=== PATIENT | male | born 1945 | race Caucasian/White ===

== ENCOUNTER 2022-11-27 13:37 | Inpatient (IN) | payer MEDICARE ==
[2022-11-27] VITALS (31 sets, daily range): BP systolic 86–154; BP diastolic 35–83
[~2022-11-27] VITALS: Ht 172.7 cm; Wt 88.5 kg
[~2022-11-27 13:37] MED LIST: ALBUTEROL; AMLO5; CAND4 PO; CEPH500 PO; CLOP75 PO; CRESTOR; DICMIS75EC PO; DIPASPER; HYDPAM50 PO; HYDROCHLOROTHIAZIDE; LISI20; METO25ER PO; METOPROLOL; METOPROLOL PO; OXYACE5T PO; PIRO20; PLAVIX PO; TRIAM/HCTZ; UROXATROL; [UNRECOGNIZED DRUG - REMARK]; [UNRECOGNIZED DRUG - REMARK]; [UNRECOGNIZED DRUG - REMARK]; [UNRECOGNIZED DRUG - REMARK]
[2022-11-27 13:54] LABS: Hematocrit 41.9 % (37.0-53.0); Hemoglobin 12.7 g/dL (13.5-17.5); Mean Corpuscular HGB 31.9 pg (26.0-34.0); Mean Corpuscular HGB Conc 30.3 g/dL (31.5-36.5); Mean Corpuscular Volume 105 fL (80-100); Platelet Count 309 K/mm3 (150-400); RDW Standard Deviation 55.1 fL (35.1-46.3); Red Blood Cell Count 3.98 M/mm3 (4.30-5.90); White Blood Cell Count 22.23 K/mm3 (4.00-11.30)
[2022-11-27 14:00] LABS: Calcium, Ionized (POC) 1.19 mmol/L (1.10-1.46); Chloride (POC) 104 mmol/L (98-108); Creatinine (POC) 3.7 mg/dL (0.8-1.3); Glucose (ISTAT POC) >700 mg/dL (70-99); Hemoglobin (POC) 13.6 g/dL (13.5-17.5); Potassium (POC) 6.5 mmol/L (3.5-5.5); Sodium (POC) 125 mmol/L (135-148); Total CO2 (POC) 12 mmol/L (21-32)
[2022-11-27 14:14] LABS: Magnesium, Blood 3.2 mg/dL (1.6-2.4)
[2022-11-27 14:15] LABS: BAND PERCENT MAN 1 % (0-8); BASOPHILS PERCENT MAN 0 % (0-2); EOSINOPHILS ABSOLUTE MAN 0.44 K/mm3 (0.00-0.68); EOSINOPHILS PERCENT MAN 2 % (0-6); LYMPHOCYTES ABSOLUTE MAN 5.77 K/mm3 (0.84-5.20); LYMPHOCYTES PERCENT MAN 26 % (21-46); METAMYELOCYTE ABSOLUTE MAN 0.44 K/mm3 (0.00-0.00); METAMYELOCYTE PERCENT MAN 2 % (0-0); MONOCYTES PERCENT MAN 9 % (4-13); MYELOCYTE ABSOLUTE MAN 0.22 K/mm3 (0.00-0.00); MYELOCYTE PERCENT MAN 1 % (0-0); NEUTROPHILS ABSOLUTE MAN 13.33 K/mm3 (1.96-9.15); SEG NEUTROPHILS PERCENT MAN 59 % (41-73); TOTAL CELLS COUNTED 100
[2022-11-27 14:27] LABS: Albumin, Blood 2.8 g/dL (3.4-5.0); Albumin/Globulin Ratio 0.6 (0.8-1.8); Bilirubin, Total 0.7 mg/dL (0.1-1.0); Bun/Creatinine Ratio 19.7 (12.0-20.0); Calcium, Blood 10.1 mg/dL (8.5-10.1); Creatinine, Blood 3.14 mg/dL (0.60-1.20); Potassium, Blood 6.8 mmol/L (3.5-5.5); Total Protein, Blood 7.8 g/dL (6.4-8.2)
[2022-11-27 17:11] LABS: Magnesium, Blood 2.9 mg/dL (1.6-2.4)
[2022-11-27 17:20] LABS: Albumin, Blood 2.6 g/dL (3.4-5.0); Anion Gap 14 mmol/L (6-16); Blood Urea Nitrogen 65 mg/dL (8-24); Bun/Creatinine Ratio 20.7 (12.0-20.0); CO2, Blood 15 mmol/L (21-32); Calcium, Blood 9.5 mg/dL (8.5-10.1); Chloride, Blood 99 mmol/L (98-108); Creatinine, Blood 3.14 mg/dL (0.60-1.20); Glomerular Filtration Rate 20 (60-); Glucose, Blood 825 mg/dL (70-99); Phosphorus, Blood 8.4 mg/dL (2.5-4.9); Potassium, Blood 6.5 mmol/L (3.5-5.5); Sodium, Blood 128 mmol/L (136-145)
[2022-11-27 17:21] LABS: Potassium, Blood 6.5 mmol/L (3.5-5.5)
--- NOTE | 2022-11-27 17:21 | NUR ---
Pt resting in bed and intubated. Met with Dr Baltazar, spouse Susan, and daughter Sultana outside of Pt's room. Dr Baltazar reviews plan of care and answers questions. This RN offered supportive visit. 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 Family would like Pt to remain a full code. Continued supportive visit. Palliative Care will remain available
[2022-11-27 17:25] LABS: Base Excess Venous -13.8 mmol/L; PCO2 Venous 46.9 mmHg (38-42); pH Blood Venous 7.13 (7.34-7.37)
--- NOTE | 2022-11-27 19:00 | NUR ---
SUMMARY Assumed care of pt on arrival to ICU 3 from cardiac cath tech. Prior to that, patient was in ER. Report received from ER and cardiac cath tech. Arrived at 1611 accompanied by , Susan, who is a retired ICU and ER nurse. Arrived with transvenous pacer to R neck. Inquired about line placement measurement, cardiac cath tech staff was not able to provide this. Markings are not clearly visible on transvenous pacemaker due to several layers of tegaderm and tegaderm CHG. Settings on arrival are rate 60, output 5.0 ma, sensing 2.0 mv. Patient's HR on arrival was 110 with no pacemaker activity noted on monitor. Around 1655, patient's HR dropped and he immediatly became 100% pacemaker dependent. Noted that intermittently, pacemaker would not capture and HR would measure as low as 48. Dr Sandoval noted. Provider presented to bedside and increased output to 8.0 ma. Provider stated that it is acceptable for the pacemaker to intermittently not capture, but continue monitoring the patient. Provider satisfied and was reassured that patient's BP is stable despite occasional failure to capture. At end of shift, pt's HR increased, which correlated with him becoming more awake. Patient had sedation cessation for approx 1.5 hours as his RASS was -4 on arrival to unit and would not respond to peripheral or centrally applied painful stimulus. After 1.5 hrs of propofol being turned off, patient was tracking staff as they moved about the room and nodded his head to indicate yes when his daughter and law told him "we are gonna let you go back to sleep". Propofol restarted at previous rate of 10 mcg/kg/min. Pt has 8.0 cm ETT that is placed 24 cm at gums. Initial vent settings ACVC 14/400/5/50%. Dr Baltazar decreased FiO2 to 30% when he initially assessed the patient and FiO2 remains at 30% at this time. Patient breathing over vent. Lungs clear, dim in bases. Yellow urine output from damico catheter. CBG remains high, but trending down. Insulin has been at 9.5 units per hour since arrival to unit. Green top sent to lab for glucose level at 1800, currently pending. Shortly after glucose sent at 1623, there was a 45 minute disruption in insulin/fluids due to loss of IV access. Will continue to closely reassess. Patient has had several family members in and out of room. Family states high levels of anxiety/concern, because they received report of poor prognosis from the patient's spouse and/or ER staff. Discussed plan of care for ICU stay, discussed abnormal findings and how they are being addressed, also discussed findings that are reassuring of patient's potential for recovery (stable BP, low oxygen requirements, and improving neuro assessment). Pt's spouse states plan to spend the night.
[2022-11-27 20:21] LABS: Glucose, Blood 550 mg/dL (70-99)
[2022-11-27 20:43] LABS: PCO2 Arterial 34.5 mmHg (35-45); PO2 Arterial 67.9 mmHg (80-100); pH Blood Arterial 7.31 (7.35-7.45)
[2022-11-27 20:59] LABS: Source, Urine Foley catheter
[2022-11-27 21:09] LABS: Bilirubin, Urine Neg (Neg); Blood, Urine 2+ (Neg); Glucose Qualitative, Urine 4+ (Neg); Ketones, Urine Neg (Neg); Leukocyte Esterase, Urine Neg (Neg); Nitrite, Urine Neg (Neg); Protein, Urine 2+ (Neg); Specific Gravity, Urine 1.015 (1.003-1.022); Urobilinogen, Urine NORM (Normal)
[2022-11-27 21:10] LABS: Appearance, Urine Clear (Clear); Color, Urine Yellow (P-Yellow)
[2022-11-27 21:20] LABS: Bacteria Few /hpf; Granular Casts 0-2 /lpf (0); Squamous Epithelial Cells Rare /hpf (Few)
[2022-11-27 22:21] LABS: Calcium, Blood 8.7 mg/dL (8.5-10.1); Creatinine, Blood 2.86 mg/dL (0.60-1.20)
--- NOTE | 2022-11-27 22:59 | NUR ---
ASSUMPTION OF CARE/ASSESSMENT: ASSUMED CARE OF PT AT 1900. PT INTUABTED AND SEDATED WITH VENT SETTINGS AC/VC 14/400/5/30% AND PROPOFOL GTT @ 30 MCG. DURING INITIAL ASSESSMENT PT WAS ON MINIMAL PROPOFOL AND WAS AWAKE AND FOLLOWING COMMANDS: PT ABLE TO SQUEEZE HANDS, NOD HEAD YES/NO AND FOLLOW SIMPLE COMMANDS. PT WAS NO TOLERATING VENT AND STARTED TO BECOME TACHYPNEIC, PROPOFOL GTT INCREASED AT THIS TIME AND PRN ATIVAN GIVEN. PT NOW RESTING COMFORTABLY AND TOLERATING VENT. PT CURRENTLY SR ON MONITOR WITH HR 80'S; A TEMPORARY TRANSVENOUS PACEMAKER IS IN PLACE IN [facility] WITH SETTINGS OUTPUT-8, SENSING- 2, AND RATE 60 BPM. PT HAS BEEN IN SR WITH MINIMAL PACING OBSERVED ON VIDEOGRAPHER. LUNG SOUNDS ARE CLEAR THROUGHOUT, PT COUGHING BUT NOT PRODUCTIVE. HYPOACTIVE BOWEL SOUNDS IN ALL QUADRANTS, OGT IN PLACE AND DRAINING TO GRAVITY WITH BILE OUTPUT OBSERVED. TEMP RODRIGUEZ IN PLACE WITH CLEAR, YELLOW OUTPUT; PT REMAINS AFEBRILE. 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 PPP X 4; PG TO LUIS CARLOS AND PIV TO LFA, BOTH LINES INFUSING. PT ON INSULIN GTT @ 6 UNITS/HR. DR MORGAN AND DR MOSELEY NOTIFIED OF RECENT CMP AND PT'S CURRENT CONDITIONS, ORDER RECIEVED. FAMILY MEMBERS AT BEDSIDE WITH PT; ALL QUESTIONS ANSWERED AT THIS TIME.
[2022-11-28] VITALS (64 sets, daily range): BP systolic 89–179; BP diastolic 43–122
[2022-11-28 03:40] LABS: Hematocrit 29.9 % (37.0-53.0); Hemoglobin 10.1 g/dL (13.5-17.5); Mean Corpuscular HGB Conc 33.8 g/dL (31.5-36.5); Mean Platelet Volume 9.8 fL (9.1-12.4); Platelet Count 198 K/mm3 (150-400); RDW Coefficient Variation 13.7 % (11.7-14.2); RDW Standard Deviation 47.9 fL (35.1-46.3); Red Blood Cell Count 3.16 M/mm3 (4.30-5.90); White Blood Cell Count 10.58 K/mm3 (4.00-11.30)
[2022-11-28 03:48] LABS: Mean Corpuscular Volume 95 fL (80-100)
[2022-11-28 03:52] LABS: pH Blood Venous 7.31 (7.34-7.37)
[2022-11-28 03:53] LABS: Base Excess Venous -5.9 mmol/L; Bicarbonate Venous 19.4 mmol/L (24.0-30.0); PCO2 Venous 40.2 mmHg (38-42)
[2022-11-28 04:11] LABS: Albumin, Blood 2.2 g/dL (3.4-5.0); Anion Gap 7 mmol/L (6-16); Blood Urea Nitrogen 59 mg/dL (8-24); Bun/Creatinine Ratio 23.1 (12.0-20.0); CO2, Blood 20 mmol/L (21-32); Calcium, Blood 8.7 mg/dL (8.5-10.1); Chloride, Blood 117 mmol/L (98-108); Creatinine, Blood 2.55 mg/dL (0.60-1.20); Glomerular Filtration Rate 25 (60-); Glucose, Blood 193 mg/dL (70-99); Magnesium, Blood 2.4 mg/dL (1.6-2.4); Potassium, Blood 4.5 mmol/L (3.5-5.5); Sodium, Blood 144 mmol/L (136-145)
[2022-11-28 04:31] LABS: Phosphorus, Blood 4.4 mg/dL (2.5-4.9)
--- NOTE | 2022-11-28 06:04 | NUR ---
SHIFT SUMMARY: PT REMAINS INTUBATED AND SEDATED WITH VENT SETTINGS AC/VC 14/400/5/30% AND PROPOFOL GTT @ 25 MCG. VSS THROUGHOUT THE SHIFT; PT DID BECOME FEBRILE WITH TMAX @ 99.8, KAYDEN NOTIFIED AND ORDERS RECIEVED FOR TYLENOL. INSULIN GTT PLACED ON STANDBY AROUND 0345. PT TOLERATING VENT THROUGHOUT THE NIGHT. NS @ 100 MLS/HR. URINE OUTPUT AT 1150 THIS SHIFT. BED LOWERED, CALL LIGHT IN REACH.
[2022-11-28] MEDS ORDERED: DICL75ER PO (08:11)
[2022-11-28] MEDS ORDERED: ATOR40TA PO (08:11)
[2022-11-28] MEDS ORDERED: SPIR25 PO (08:11)
[2022-11-28] MEDS ORDERED: METO100ER PO (08:12)
[2022-11-28] MEDS ORDERED: ACET325 PO (08:12)
[2022-11-28] MEDS ORDERED: CAND16 PO (08:12)
[2022-11-28 09:05] LABS: Bun/Creatinine Ratio 24.6 (12.0-20.0); Calcium, Blood 8.9 mg/dL (8.5-10.1); Creatinine, Blood 2.36 mg/dL (0.60-1.20); Potassium, Blood 5.2 mmol/L (3.5-5.5)
--- NOTE | 2022-11-28 13:54 | NUR ---
REASSESSMENT PT HAD A SBT THIS AM AND DID WELL SO DR. MOSELEY GAVE OK TO EXTUBATE PT. PT WAS EXTUBATED AND PLACED ON 4L/NC AT 1150. PT ALERT AND FOLLOWING DIRECTIONS AT TIME OF EXTUBATION. VOICE WAS HOARSE RIGHT AFTER, BUT IS CLEARING NOW. LUNGS ARE CLEAR AND PT HAS STRONG COUGH. PT TRIALLED ON WATER ABOUT AN HOUR AFTER EXTUBATION AND DID NOT SHOW ANY SIGNS OF ASPIRATION. PT WAS COMPLAINING OF HIS CATHETER HURTING AND LEAKING. PT GOWN WAS WET AROUND THE GROIN. DR. MOSELEY GAVE OK TO DC CATHETER. RODRIGUEZ REMOVED WITHOUT DIFFICULTY AND PT USED THE URINAL WITH ASSISTANCE SHORTLY AFTER. TEMPORARY PACER REMAINS IN PLACE. DR. NELSON TURNED PACER RATE DOWN TO 40 WHEN HE WAS AT THE BEDSIDE THIS MORNING.
[2022-11-28 16:39] LABS: Bun/Creatinine Ratio 23.9 (12.0-20.0); Creatinine, Blood 2.01 mg/dL (0.60-1.20)
--- NOTE | 2022-11-28 17:39 | NUR ---
SHIFT SUMMARY AFTER PT'S BATH THIS AFTERNOON, PT'S WAS QUITE UPSET THAT HER SON WAS ASKED TO LEAVE THE ROOM WHILE PT GOT HIS CATHETER REMOVED AND BED BATH. PT'S SON DID NOT MAKE ANY REQUEST TO STAY WHEN HE WAS ASKED AND PT'S HAD BEEN LET RIGHT IN WHEN SHE CAME BACK. PT'S TALKED WITH ANDREW, NURSING OIL PIT ATTENDANT AND SEEMS TO BE DOING BETTER SINCE THEN. PT HAS DONE WELL SINCE BEING EXTUBATED. OXYGEN TITRATED OFF AND SPO2 REMAINS IN THE UPPER 90S. LUNGS ARE CLEAR, STRONG COUGH. PT HAS BEEN VOIDING, BUT PT'S HAS BEEN INSISTING ON DOING HIS ATTENDS CHANGES AND TURNS. 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 PT'S HR HAS CONTINUED TO BE SINUS, BUT IS GOING BETWEEN FCO IN THE 50S AND TACHY IN THE LOW 100S. PACER WIRES REMAIN AT THE SAME MARKINGS. VERY FEW PACER SPIKES SEEN THIS AFTERNOON. SBP REMAINS IN THE 160S. PT IS EATING AND SHOWING NO SIGNS OF ASPIRATION. SLIDING SCALE STARTED PER DR. MOSELEY. CONTINUING TO MONITOR.
[2022-11-28] MEDS ORDERED: OMEP20ER PO (21:50)
[2022-11-29] VITALS (22 sets, daily range): BP systolic 143–179; BP diastolic 64–108
[2022-11-29 05:40] LABS: Hematocrit 32.9 % (37.0-53.0); Hemoglobin 10.9 g/dL (13.5-17.5); Mean Corpuscular HGB 31.7 pg (26.0-34.0); Mean Corpuscular HGB Conc 33.1 g/dL (31.5-36.5); Mean Corpuscular Volume 96 fL (80-100); Mean Platelet Volume 10.2 fL (9.1-12.4); Platelet Count 216 K/mm3 (150-400); RDW Coefficient Variation 13.6 % (11.7-14.2); Red Blood Cell Count 3.44 M/mm3 (4.30-5.90); White Blood Cell Count 11.92 K/mm3 (4.00-11.30)
--- NOTE | 2022-11-29 05:57 | NUR ---
SHIFT SUMMARY: NO ACUTE CHANGES THROUGHOUT THE SHIFT; VSS. PT A&O X 4, FOLLOWING COMMANDS AND AT BEDSIDE THROUGHOUT THE SHIFT COMPLETING ALL ALD'S AND ASKING FOR HELP FROM THIS RN WHEN NEEDED. PT HAD TWO UNMEASURED VOIDS THIS SHIFT, NO BM. PT HAS C/O CHRONIC BACK PAIN; MEDICATED PER EMAR. PT HAS HAD DRY COUGH THROUGHOUT THE NIGHT BUT LUNG SOUNDS REMAIN CLEAR THROUGHOUT WITH SLIGHT EXPIRATORY WHEEZE NOTED IN RUL. NS RUNNING AT 75 MLS/HR. BED LOWERED, CALL LIGHT IN REACH.
[2022-11-29 06:01] LABS: BAND PERCENT MAN 6 % (0-8); BASOPHILS PERCENT MAN 0 % (0-2); EOSINOPHILS ABSOLUTE MAN 0.11 K/mm3 (0.00-0.68); EOSINOPHILS PERCENT MAN 1 % (0-6); LYMPHOCYTES % ATYPICAL MANUAL 1 % (0-0); LYMPHOCYTES ABSOLUTE MAN 1.31 K/mm3 (0.84-5.20); LYMPHOCYTES PERCENT MAN 10 % (21-46); METAMYELOCYTE ABSOLUTE MAN 0.11 K/mm3 (0.00-0.00); METAMYELOCYTE PERCENT MAN 1 % (0-0); MONOCYTES ABSOLUTE MAN 0.47 K/mm3 (0.16-1.47); MONOCYTES PERCENT MAN 4 % (4-13); NEUTROPHILS ABSOLUTE MAN 9.89 K/mm3 (1.96-9.15); SEG NEUTROPHILS PERCENT MAN 77 % (41-73); TOTAL CELLS COUNTED 100
[2022-11-29 06:22] LABS: Albumin, Blood 2.3 g/dL (3.4-5.0); Anion Gap 7 mmol/L (6-16); Blood Urea Nitrogen 39 mg/dL (8-24); Bun/Creatinine Ratio 24.4 (12.0-20.0); CO2, Blood 20 mmol/L (21-32); Calcium, Blood 8.9 mg/dL (8.5-10.1); Chloride, Blood 111 mmol/L (98-108); Glomerular Filtration Rate 44 (60-); Glucose, Blood 255 mg/dL (70-99); Magnesium, Blood 1.9 mg/dL (1.6-2.4); Phosphorus, Blood 2.9 mg/dL (2.5-4.9); Potassium, Blood 4.9 mmol/L (3.5-5.5); Sodium, Blood 138 mmol/L (136-145)
--- NOTE | 2022-11-29 08:43 | NUR ---
DISCUSSED WITH PT AND HIS THIS MORNING THIS NURSE'S RECOMMENDATION TO BE NPO UNTIL SPEAKING WITH THE NUCLEAR TEST TECHNICIAN IN CASE HE DECIDEES PT NEEDS A PERMANENT PACER TODAY. EXPLAINED TO PT'S THAT PT DID HAVE A SHORT EPISODE YESTERDAY AFTERNOON WHEN THE TEMPORARY PACER WAS USED BECAUSE THE PT WAS IN HEART BLOCK. AT NEWS OF THIS PT'S BECOMES DISTRESSED SAYING THAT SHE DOESN'T THINK SHE WANTS PT TO HAVE A PACER PLACED HERE. SHE STARTS SAYING THAT SHE THINKS SHE WILL JUST HAVE THE DOCTOR PULL THE TEMPORARY PACER AND TAKE PT DOWN TO [facility] TO HAVE A PACER PLACED, EVEN IF SHE HAS TO DRIVE HIM HERSELF. TRIED TO DISCUSS RISKS OF THAT, BUT PT'S SAYS SHE KNOWS. ASKED PT'S IF SHE AGREES WITH KEEPING PT PO UNTIL THE DOCTORS ROUND AND SHE SAYS YES. DISCUSSED PT'S INSULIN WITH PT'S AND SHE IS VERY CONCERNED ABOUT HIM DROPPING HIS BLOOD SUGAR. PT IS CURRENTLY ABOVE 200. REVIEWED THE AMOUNT OF INSULIN PT HAS BEEN GETTING AND PT'S SAYS PT HASN'T BEEN EATING A LOT ANYWAYS. PT'S GIVEN MULTIPLE OPPORTUNITIES TO REFUSE THE INSULIN FOR HIM BECAUSE SHE WAS HESITANT, BUT SHE SAID TO GIVE IT. SHE IS ALSO UPSET THAT PT'S BP IS ELEVATED. INFORMED HER THAT AMLODIPINE IS DUE NOW AND WILL BE GIVEN AND SHE IS UPSET AND THAT HE IS ON AMLODIPINE BECAUSE SHE SAYS IT MAKES HIS LEGS SWELL AND DOESN'T WORK. EXPLAINED THAT DR. MOSELEY STARTED IT JUST YESTERDAY AND CHOSE IT BECAUSE OF PT'S KIDNEYS AND HR. PT'S CONTINEUS TO BE AGITATED ABOUT IT. DIRECTLY ASKED HER IF SHE WANTS THE AMLODIPINE GIVEN OR IF SHE WOULD LIKE TO WAIT TO TALK TO THE DOCTORS AND SHE SAID TO GIVE IT NOW. THROUGHOUT ALL THIS SHE REPEATEDLY EXPRESSED HER FRUSTRATION WITH THIS "SITUATION." SHE SAYS SHE IS HAPPY WITH THE DOCTORS BUT SHE CONTINUES TO EXPRESS UNHAPPINESS WITH MOST OF HIS CARE. GREAT EFFORT IS BEING GIVEN TO KEEP HER INVOLVED IN ALL ASPECTS OF HIS CARE AND TO TRY TO HELP HER FEEL A SENSE OF CONTROL. DURING ALL OF THIS PT LIES QUIETLY IN BED AND LETS HIS DIRECT HIS CARE.
--- NOTE | 2022-11-29 13:36 | NUR ---
ELEVATED BLOOD PRESSURE PATIENT BP IS ELEVATED WITH SBP 160'S-170'S. MAPS GREATER THAN 100. CALL MADE TO DR. NELSON FOR PARAMETERS AND ORDERS. NO ORDERS RECEIVED AND PARAMETERS RECEIVED TO MAINTAIN SBP UNDER [address] MORGAN OR HOSPITALIST FOR BP ORDERS.
--- NOTE | 2022-11-29 16:50 | NUR ---
URINATION PATIENT'S REPORTS CHANGING 3 SOILED ATTENDS AND 2 BED CHANGES THIS SHIFT DUE TO PATIENT INCONTINENCE AT BASELINE. DUE TO FREQUENT BED CHANGES AND WANTING TO LIMIT ROLLING IN BED DUE TO TRANSVENOUS PACEMAKER, CODOM CATHETER PLACED ON PATIENT.
[2022-11-30] VITALS (17 sets, daily range): BP systolic 119–171; BP diastolic 82–124
--- NOTE | 2022-11-30 06:04 | NUR ---
PATIENT AOX4, FOLLOWS COMMANDS AND MOVES ALL EXTREMITIES. FIRST DEGREE AV BLOCK WITH RATE OF 95-105. 12 SECOND RUN OF VTACH OVERNIGHT, COPY IN CHART. HYPERTENSIVE WITH SYS 140-170'S. AFEBRILE. ROOM AIR. NPO SINCE MIDNIGHT FOR POTENTIAL PACEMAKER TODAY. NO BM, ACTIVE BOWEL SOUNDS. PATIENT INCONTINENT. AT BEDSIDE AND HAS ACTIVE ROLE IN PATIENT CARE (TURNING AND CLEANING PATIENT AFTER INCONTINENT EPISODES, BY HER REQUEST).
[2022-11-30 06:15] LABS: Hematocrit 36.2 % (37.0-53.0); Hemoglobin 12.4 g/dL (13.5-17.5)
[2022-11-30 06:27] LABS: Albumin, Blood 2.6 g/dL (3.4-5.0); Anion Gap 8 mmol/L (6-16); Blood Urea Nitrogen 34 mg/dL (8-24); Bun/Creatinine Ratio 25.4 (12.0-20.0); CO2, Blood 21 mmol/L (21-32); Calcium, Blood 9.2 mg/dL (8.5-10.1); Chloride, Blood 107 mmol/L (98-108); Creatinine, Blood 1.34 mg/dL (0.60-1.20); Glomerular Filtration Rate 55 (60-); Glucose, Blood 258 mg/dL (70-99); Phosphorus, Blood 3.2 mg/dL (2.5-4.9); Potassium, Blood 4.7 mmol/L (3.5-5.5); Sodium, Blood 136 mmol/L (136-145)
--- NOTE | 2022-11-30 07:11 | NUR ---
ASSUMED CARE I ASSUMED CARE OF THIS PATIENT AT 0710 FROM AVA Jimenez. BEDSIDE REPORT RECEIVED. PATIENT IS LYING IN BED AWAKE WITH AT BEDSIDE. NS INF @ 50ML/HR TO LUIS CARLOS RILEY SHOWS ELEVATED BP WITH SBP 130'S AND MAPS GREATER THAN 100'S. HR 95-110.
--- NOTE | 2022-11-30 08:55 | NUR ---
TRANSVENOUS PACER PACEMAKER TURNED OFF AT [address] HAWKINS AND JAMEL STRICKLAND AT BEDSIDE. VERBAL ORDERS GIVEN BY DR. HAWKINS TO MONITOR PATIENT HEART RATE AND TO TURN TRANSVENOUS PACEMAKER BACK ON IN THE EVENT THAT HIS HEART RATE DROPS TO 40BPM WITH THE RATE SET AT 30 AND FACOTRY SETTINGS FOR OUTPUT AND SENSITIVITY.
--- NOTE | 2022-11-30 17:10 | NUR ---
SHIFT SUMMARY/TRANSFER TO MEDICAL TRANSVENOUS PACER REMOVED THIS AFTERNOON AND PRESSURE HELD FOR 15 MINUTES. OPSITE OVER SITE WITH NO COMPLICATIONS. ATTEMPTED TO HELP PATIENT OOB AND INTO WC TO TRANSFER TO MEDICAL FLOOR WITH THE USE OF GAITBELT, BUT WAS UNABLE TO BEAR OWN WEIGHT SAFELY. PATIENT TRANSFERRED VIA BED WITH ALL BELONGINGS AND MEDICATIONS. NO ACUTE EVENTS DURING SHIFT. PATIENT BP AND HR REMAINS ELEVATED. DR. OBRIEN NOTIFIED AND ORDER RECEIVED FOR METOPROLOL TO BE RESTARTED METOPROLOL SUCCINATE ER 25MG PO ONCE DIALY. FIRST DOSE GIVEN THIS AFTERNOON. REPORT GIVEN TO AJMEL CARRASCO.
--- NOTE | 2022-11-30 18:15 | NUR ---
SHIFT NOTE PT REPORT RECEIVED FROM ICU. PT ARRIVED VIA BED ACCOMPANIED BY RN AND . PT ALERT AND COOPERATIVE. TRANSFERED TO NEW BED WITH SLIDER SHEET. PT DENIED DISCOMFORT. GOOD APPETITE. PT LOOKING FORWARD TO WORKING WITH PT/OT TOMORROW. HE NEEDS A ZIO PATCH BEFORE DISCHARGE HOME. CONTINUE POC.
--- NOTE | 2022-11-30 21:51 | NUR ---
CALLED HOSPITALIST INFORMED HIM OF PATIENT'S GLUCOSE CBG LEVEL ELEVATED, AND IT HAS BEEN TRENDING UP. NEW ORDER FOR HUMALOG NOW DOSE RECEIVED.
[2022-11-30] MEDS ORDERED: GEMFIBROZIL600 MG PO (22:25)
[2022-11-30] MEDS ORDERED: Cipro500 MG PO (22:25)
--- NOTE | 2022-12-01 04:09 | NUR ---
SHIFT SUMMARY ADMITTED FOR ADMITTED FOR SEIZURES/DKA. FULL CODE. FOUND TO HAVE A UTI, IV ANTIB RX ARE SCHEDULED. ACHS CBG'S. ADA DIET. TELEMETRY: TACHY @ 111 BPM W/1ST DEG HB AND BBB. POWERGLIDE IN RUE. DR. MORGAN IS RENAL CONSULT. IS RETIRED RN AND AT BEDSIDE, I AM UNSURE IF SHE UNDERSTANDS THE PLAN OF CARE COMPLETELY. NO EVENTS NOTED THIS SHIFT. ON ROOM AIR.
[2022-12-01 06:01] VITALS: BP 144/89
[2022-12-01 06:21] LABS: Albumin, Blood 2.6 g/dL (3.4-5.0); Anion Gap 9 mmol/L (6-16); Blood Urea Nitrogen 40 mg/dL (8-24); Bun/Creatinine Ratio 30.5 (12.0-20.0); CO2, Blood 20 mmol/L (21-32); Calcium, Blood 9.4 mg/dL (8.5-10.1); Chloride, Blood 108 mmol/L (98-108); Creatinine, Blood 1.31 mg/dL (0.60-1.20); Glomerular Filtration Rate 56 (60-); Glucose, Blood 302 mg/dL (70-99); Potassium, Blood 4.9 mmol/L (3.5-5.5); Sodium, Blood 137 mmol/L (136-145)
[2022-12-01 07:47] VITALS: BP 116/91
--- NOTE | 2022-12-01 11:25 | NUR ---
BLOOD SUGAR AT 1119 IS 443, DR OBRIEN NOTIFIED, ORDERS RECIEVED FOR PATIENT TO RECIEVE 15 UNITS HUMALOG WITH LUNCH TODAY INSTEAD OF 10 UNITS AND TO INCREASE GLARGINE TO 20 UNITS DAILY BEGINNING TOMORROW.
--- NOTE | 2022-12-01 12:17 | NUR ---
REPORT GIVEN TO AZ MCCULLOUGH COVERING REST OF SHIFT
[2022-12-01 15:18] VITALS: BP 121/72
--- NOTE | 2022-12-01 15:30 | NUR ---
THIS RN ASSUMED CARE AT 1200. DR. OBRIEN BY TO SEE PATIENT AND DISCUSS PLAN OF CARE WITH PATIENT AND FAMILY. NEW ORDERS FOR THIS RN TO PLACE INCLUDE. METOPROLOL SUCCINATE 25MG PO X1 DOSE NOW, CHANGE INSULIN LISPRO SLIDING SCALE TO HIGH, CHANGE INSULIN GLARGINE TO 15 UNITS BID, AND PHYSICAL THERAPY ORDERS. ORDERS IN PLACE. PHYSICAL THERAPY PLANS TO SEE PATIENT TOMORROW AM. 1500 VITALS STABLE. DENIES NEEDS AT THIS TIME. CALL LIGHT IN REACH.
--- NOTE | 2022-12-01 18:20 | NUR ---
SHIFT SUMMARY: PATIENT REMAINS ALERT AND ORIENTED. VITAL SIGNS STABLE. REMAINS AT BEDSIDE. ON ROOM AIR. TELE SHOWING SR WITH 1ST DEGREE AND BBB. DENIES CHEST PAIN/PRESSURE. EATING AND VOIDING WNL. 1630 BLOOD SUGAR REMAINS ELEVATED AT 396. DR. OBRIEN CALLED. ORDERS TO GIVE ADDITIONAL 5 UNITS OF HUMALOG ALONG WITH HIGH SLIDING SCALE OF 15 UNITS. IV ABX INFUSING. DENIES PAIN. UP TO CHAIR FOR DINNER USING FWW AND GAIT BELT. EATING DINNER AT THIS TIME. CALL LIGHT IN REACH.
[2022-12-01 19:49] VITALS: BP 100/64
[2022-12-02 04:31] VITALS: BP 115/78
[2022-12-02 05:19] LABS: Hematocrit 35.1 % (37.0-53.0); Hemoglobin 12.1 g/dL (13.5-17.5)
--- NOTE | 2022-12-02 05:42 | NUR ---
SHIFT SUMMARY - NO ACUTE CHANGES THROUGHOUT THIS SHIFT. PT IS ANTICIPATING GOING HOME TOMORROW. PT'S REPORTS HE HAS ONE MORE DAY TO WORK WITH PHYSICAL THERAPY, THEY HAVE STEPS INTO THE HOME. PT HAS DENIED ANY COMPLAINTS OF PAIN OR DISCOMFORT THROUGHOUT THE NIGHT. PT'S SLEPT OVER TONIGHT, AND HAS BEEN APPROPRIATE WITH STAFF. FLUIDS AT BEDSIDE. CALL LIGHT WITHIN REACH. BED IN LOW POSITION. WILL CONTINUE TO MONITOR PT UNTIL AM SHIFT CHANGE.
[2022-12-02 05:56] LABS: Albumin, Blood 2.5 g/dL (3.4-5.0); Anion Gap 10 mmol/L (6-16); Blood Urea Nitrogen 56 mg/dL (8-24); Bun/Creatinine Ratio 32.9 (12.0-20.0); CO2, Blood 17 mmol/L (21-32); Calcium, Blood 9.1 mg/dL (8.5-10.1); Chloride, Blood 106 mmol/L (98-108); Glomerular Filtration Rate 41 (60-); Glucose, Blood 433 mg/dL (70-99); Magnesium, Blood 2.1 mg/dL (1.6-2.4); Potassium, Blood 5.1 mmol/L (3.5-5.5); Sodium, Blood 133 mmol/L (136-145)
[2022-12-02 07:33] VITALS: BP 124/80
[2022-12-02 10:31] LABS: Hematocrit 34.1 % (37.0-53.0); Hemoglobin 11.7 g/dL (13.5-17.5); Mean Corpuscular HGB 32.1 pg (26.0-34.0); Mean Corpuscular HGB Conc 34.3 g/dL (31.5-36.5); Mean Corpuscular Volume 93 fL (80-100); Mean Platelet Volume 10.4 fL (9.1-12.4); Platelet Count 274 K/mm3 (150-400); RDW Coefficient Variation 12.8 % (11.7-14.2); RDW Standard Deviation 43.7 fL (35.1-46.3); Red Blood Cell Count 3.65 M/mm3 (4.30-5.90); White Blood Cell Count 12.03 K/mm3 (4.00-11.30)
[2022-12-02 11:05] LABS: BASOPHILS PERCENT MAN 0 % (0-2); EOSINOPHILS ABSOLUTE MAN 0.24 K/mm3 (0.00-0.68); EOSINOPHILS PERCENT MAN 2 % (0-6); LYMPHOCYTES % ATYPICAL MANUAL 1 % (0-0); LYMPHOCYTES PERCENT MAN 9 % (21-46); METAMYELOCYTE ABSOLUTE MAN 0.48 K/mm3 (0.00-0.00); METAMYELOCYTE PERCENT MAN 4 % (0-0); MONOCYTES ABSOLUTE MAN 0.36 K/mm3 (0.16-1.47); MONOCYTES PERCENT MAN 3 % (4-13); NEUTROPHILS ABSOLUTE MAN 9.74 K/mm3 (1.96-9.15); SEG NEUTROPHILS PERCENT MAN 81 % (41-73); TOTAL CELLS COUNTED 100
[2022-12-02 15:55] VITALS: BP 119/75
--- NOTE | 2022-12-02 18:20 | NUR ---
SHIFT SUMMARY: "SKIP" IS A&OX4. VSS, HOWEVER PT EXPERIENCED AN EPISODE OF BURNING CHEST PAIN THAT RADIATED TO HIS SHOULDERS AND DOWN TO HIS ELBOWS. REPORTED INCIDENT TO HOSPITALIST WHO ORDERED AN EKG, TROPONING, AND CBC. TROPONIN WAS ELEVATED AT 206, REPEAT TROPONIN WAS 1119. PT STATED THAT CHEST PAIN HAD RESOLVED. HOSPITALIST CONSULTED CAFE OR RESTAURANT MANAGER. ORDERS FOR SERIAL TROPONINS, MOST RECENT DRAW AT 1800. PT IS A ONE-PERSON ASSIST TO THE BATHROOM. PT'S HAS BEEN AT BEDSIDE AND ASSISTS PT TO BATHROOM AND NEEDED IN THE ROOM. PT REPORTED HE HAD NOT HAD A BOWEL MOVEMENT SINCE ADMISSION, ORDER OBTAINED FOR SUPPOSITORY AND MIRALAX (WHICH PT'S REPORTS HE TAKES AT HOME). PT DID HAVE AN EXTRA LARGE BOWEL MOVEMENT AND ONE EPISODE OF DIARRHEA TODAY. NS INFUSING TO POWERGLIDE AT 50 ML/HR, POWERGLIDE DRAWS WELL. PT USES THE CALL LIGHT APPROPRIATELY. HE IS SITTING UP IN THE CHAIR BESIDE THE BED, CALL LIGHT IN REACH. WCTM UNTIL REPORT IS GIVEN TO DIP STAND LOADER RN.
[2022-12-02 19:48] VITALS: BP 119/67
--- NOTE | 2022-12-02 20:29 | NUR ---
CALLED AND NOTIFIED ON-CALL STITCH BONDER MACHINE OPERATOR HELPER OF PT'S CONTINUED ELEVATED TROPONIN. NO NEW ORDERS.
[2022-12-02 22:58] LABS: Anti-Xa UFH, PHA Monitoring 0.11 IU/mL; International Normalized Ratio 1.1; Prothrombin Time Results 11.5 Sec (9.7-11.5)
[2022-12-03 02:50] VITALS: BP 124/70
--- NOTE | 2022-12-03 04:18 | NUR ---
SHIFT SUMMARY PATIENT A/Ox4, PLEASANT AFFECT. DENIES PAIN NOR DISCOMFORT. STATED PRIOR CHEST PAIN, DENIES CURRENT. DENIES SOB NOR DIFFICULTY BREATHING. NO SEISURE LIKE ACTIVITY NOTED NOR REPORTED. SPOUSE AT BEDSIDE, SUPPORTIVE. CONTINUES ON TELE, SR 85 WITH PVCs AND PACs, NO NEW CHANGES. VSS, SPO2 97% ON RA. PATIENT AND SPOUSE AWARE OF NPO STATUS. NO ACUTE CHANGES NOTED OVERNIGHT. BED IN LOW POSITION, CALL LIGHT WITHIN REACH.
[2022-12-03 07:14] LABS: Hematocrit 31.6 % (37.0-53.0); Hemoglobin 10.8 g/dL (13.5-17.5); Mean Corpuscular HGB 31.9 pg (26.0-34.0); Mean Corpuscular HGB Conc 34.2 g/dL (31.5-36.5); Mean Corpuscular Volume 93 fL (80-100); Mean Platelet Volume 10.6 fL (9.1-12.4); Platelet Count 260 K/mm3 (150-400); RDW Coefficient Variation 12.8 % (11.7-14.2); RDW Standard Deviation 43.5 fL (35.1-46.3); Red Blood Cell Count 3.39 M/mm3 (4.30-5.90); White Blood Cell Count 10.18 K/mm3 (4.00-11.30)
[2022-12-03 07:19] LABS: Albumin, Blood 2.4 g/dL (3.4-5.0); Anion Gap 7 mmol/L (6-16); Blood Urea Nitrogen 47 mg/dL (8-24); Bun/Creatinine Ratio 30.3 (12.0-20.0); CO2, Blood 20 mmol/L (21-32); Calcium, Blood 8.7 mg/dL (8.5-10.1); Chloride, Blood 110 mmol/L (98-108); Creatinine, Blood 1.55 mg/dL (0.60-1.20); Glomerular Filtration Rate 46 (60-); Glucose, Blood 274 mg/dL (70-99); Phosphorus, Blood 3.3 mg/dL (2.5-4.9); Potassium, Blood 4.3 mmol/L (3.5-5.5); Prostate Specific Antigen <0.010 ng/mL (0.000-4.000); Sodium, Blood 137 mmol/L (136-145)
[2022-12-03 07:25] VITALS: BP 121/65
--- NOTE | 2022-12-03 10:34 | NUR ---
CALL FROM [employer] STATING PT WITH TYPE 2 SECOND DEGREE AVB. PT ASYMPTOMATIC. DR HAWKINS INFORMED VIA CELL #. NO FURTHER ORDERS AT THIS TIME. WILL CONTINUE TO MONITOR.
[2022-12-03 14:20] VITALS: BP 120/74
--- NOTE | 2022-12-03 14:20 | NUR ---
ARRIVED TO PCU 9 PT TRANSFERED TO PCU 9 FROM MEDICAL FLOOR. PT IN BED, ALERT ORIENTED WITH SPOUSE AT BEDSIDE. PT DENIES ANY C/O. VSS, TELE NSR. SPOUSE IS VERY VOCAL ABOUT WANTING TO SEE THE LICENSED NUCLEAR CONTROL ROOM OPERATOR, AND IF SHE DOESN'T LIKE WHAT HE SAYS THEY ARE "GOING TO LEAVE AMA." SPOKE WITH DR. FIGUEROA AND SHE IS AWARE AND SHE STATED THAT SHE ALREADY REACHED OUT TO DR. HAWKINS.
--- NOTE | 2022-12-03 14:29 | NUR ---
SHIFT/TRANSFER SUMMARY Pt remains A&O X3 this shift. Denies pain. VSS. LSCTA, diminished. Up to bathroom with SBA. Heparin gtt infusing as ordered without interuption. Pt transferred to PCU 9 as ordered.
--- NOTE | 2022-12-03 15:16 | NUR ---
ASSUMED CARE ASSUMED CARE OF PATIENT AT 1430. OBTAINED BEDSIDE REPORT FROM KING CHEUNG RN. PROVIDED THERAPEUTIC LISTENING TO PATIENT'S SPOUSE WHO PROVIDED DETAILED RECOUNT OF PATIENT'S HOSPITAL STAY. SPOUSE IS RETIRED CLINICAL DATA ABSTRACTOR WITH EXCELLENT GRASP OF MEDICAL CARE. EXPRESSED FRUSTRATION THAT PATIENT HAS NOT BEEN SEEN BY CARDIOLOGY SINCE EPISODE OF CHEST PAIN AND ELEV TROPONINS YESTERDAY DESPITE REQUESTING THIS MULTIPLE TIMES. DR FIGUEROA IS AWARE AND HAS REACHED OUT TO DR HAWKINS, SEE PREVIOUS NURSE NOTES. PATIENT IS ALERT AND ORIENTED AND PLEASANT. RESTING IN BED. VSS. ROOM AIR. TOLERATING SIPS OF WATER. DENIES CP, SOB. HEPARIN RATE TITRATED PER PHARMACY. WILL CONTINUE TO MONITOR.
[2022-12-03 16:19] VITALS: BP 128/78
--- NOTE | 2022-12-03 18:35 | NUR ---
UPDATE DR HAWKINS TO BEDSIDE TO DISCUSS PLAN WITH PATIENT AND SPOUSE. EXPLAINED THAT HE DOES NOT RECOMMEND ANGIO UNTIL KIDNEY FUNCTION AND BLOOD SUGAR ARE CONTROLLED AND STABLE. PATIENT AND SPOUSE VERBALIZED UNDERSTANDING. THEIR DESIRE IS TO DISCHARGE IN THE MORNING AND TRAVEL TO THE HOSPITAL IN [place]. DR HAWKINS STATED HE THINKS THAT IS FINE AND THEY DO NOT NEED TO LEAVE AMA. THIS RN UPDATED DR FIGUEROA WHO IS IN AGREEMENT WITH THE PLAN AND WILL COME SEE PATIENT FIRST THING IN THE MORNING AND WRITE DISCHARGE ORDERS. PROVIDED PATIENT SPOUSE WITH RECENT LAB RESULTS FROM DISCHARGE SUMMARY. PATIENT TOLERATED DINNER AND SBA WITH FWW TO BATHROOM. HEPARIN GTT CONTINUES TO INFUSE.
[2022-12-03 20:00] VITALS: BP 119/66
[2022-12-04 00:27] VITALS: BP 115/77
[2022-12-04 01:24] LABS: Hematocrit 30.2 % (37.0-53.0); Hemoglobin 10.4 g/dL (13.5-17.5); Mean Corpuscular HGB Conc 34.4 g/dL (31.5-36.5); Mean Corpuscular Volume 93 fL (80-100); Mean Platelet Volume 10.5 fL (9.1-12.4); Platelet Count 251 K/mm3 (150-400); RDW Standard Deviation 44.1 fL (35.1-46.3); Red Blood Cell Count 3.25 M/mm3 (4.30-5.90); White Blood Cell Count 9.07 K/mm3 (4.00-11.30)
[2022-12-04 01:40] LABS: Albumin, Blood 2.3 g/dL (3.4-5.0); Anion Gap 8 mmol/L (6-16); Blood Urea Nitrogen 39 mg/dL (8-24); Bun/Creatinine Ratio 30.2 (12.0-20.0); CO2, Blood 19 mmol/L (21-32); Calcium, Blood 8.3 mg/dL (8.5-10.1); Chloride, Blood 112 mmol/L (98-108); Creatinine, Blood 1.29 mg/dL (0.60-1.20); Glomerular Filtration Rate 57 (60-); Glucose, Blood 246 mg/dL (70-99); Magnesium, Blood 1.9 mg/dL (1.6-2.4); Potassium, Blood 4.2 mmol/L (3.5-5.5); Sodium, Blood 139 mmol/L (136-145)
[2022-12-04 01:45] LABS: BAND PERCENT MAN 1 % (0-8); BASOPHILS ABSOLUTE MAN 0.09 K/mm3 (0.00-0.23); BASOPHILS PERCENT MAN 1 % (0-2); EOSINOPHILS ABSOLUTE MAN 0.27 K/mm3 (0.00-0.68); EOSINOPHILS PERCENT MAN 3 % (0-6); LYMPHOCYTES ABSOLUTE MAN 1.81 K/mm3 (0.84-5.20); LYMPHOCYTES PERCENT MAN 20 % (21-46); METAMYELOCYTE ABSOLUTE MAN 0.27 K/mm3 (0.00-0.00); METAMYELOCYTE PERCENT MAN 3 % (0-0); MONOCYTES ABSOLUTE MAN 0.63 K/mm3 (0.16-1.47); MONOCYTES PERCENT MAN 7 % (4-13); MYELOCYTE ABSOLUTE MAN 0.09 K/mm3 (0.00-0.00); MYELOCYTE PERCENT MAN 1 % (0-0); NEUTROPHILS ABSOLUTE MAN 5.89 K/mm3 (1.96-9.15); SEG NEUTROPHILS PERCENT MAN 64 % (41-73); TOTAL CELLS COUNTED 100
[2022-12-04 04:34] VITALS: BP 120/74
--- NOTE | 2022-12-04 05:36 | NUR ---
SHIFT SUMMARY PT REMAINS A&O X4. PT COOPERATIVE WITH CARE. AT BEDSIDE T/O SHIFT. VSS. NO C/O OF CP OR PRESSURE. PT DENIES SOB. PT DOES REPORT "SOME DIZZINESS" WHEN UP AND STANDING, BUT QUICKLY RESOLVES. PT SLEPT WELL THROUGHOUT SHIFT. ASSISTING PT WITH ATTENDS CHANGES AND AMBULATING TO RESTROOM WHEN NEEDED. REPORTS NO CONCERNS OR CHANGES IN VOIDING. NO ACUTE CHANGES W/PT THROUGHOUT SHIFT. PT REPOSITIONS INDEPENDENTLY. HEPARIN GTT INFUSING PER EMAR. WILL UPDATE ONCOMING RN.
[2022-12-04 07:55] VITALS: BP 118/80
[2022-12-04] MEDS ORDERED: BASAGLAR K100 UNIT/1 SC (09:45)
[2022-12-04] MEDS ORDERED: HUMALOG KW100 UNIT/1 SC (09:49)
[2022-12-04] MEDS ORDERED: INSULIN LI100 UNIT/6 SQ (09:56)
[2022-12-04] MEDS ORDERED: SODBIC650 PO (09:57)
--- NOTE | 2022-12-04 11:07 | NUR ---
DISCHARGE SUMMARY ALERT, ORIENTED, PLEASANT, AND COOPERATIVE. TOLERATING ADA/CARDIAC DIET AND LIQUIDS. SBA WITH FWW TO BATHROOM. WORKED WITH PT AND COMPLETED STAIR EXERCISES. DENIES CP OR SOB, ROOM AIR. TELE WITH 1ST DEGREE HB, BBB, PVCs. DR FIGUEROA TO BEDSIDE THIS AM AND WROTE DISCHARGE ORDERS AND SCRIPTS. POWERGLIDE IV DC'D WNL. DISCHARGE EDUCATION GIVEN ON FOLLOW UP RECS AND NEW MEDICATIONS. PATIENT AND SPOUSE STATED THEIR PLAN IS TO DRIVE TO [facility] ER FOR ADMISSION AND EVAL OF CAD. PATIENT LEFT UNIT AT 1045 VIA WHEELCHAIR WITH SPOUSE.
== END 2022-12-04 10:41 | disposition home or self-care (01) | DRG 637 ==
LOC: ER 13:37 → ICUE 14:45 → MEDS 14:45 → ICUE 15:11 → MEDS 11-30 17:20 → PCU 12-03 14:28
PROVIDERS: Emergency Medicine; Internal Medicine Critical Care Medicine; Internal Medicine Nephrology; Nurse Practitioner Acute Care; ADMIT Internal Medicine
PROC: 5A1935Z Respiratory Ventilation, Less than 24 Consecutive Hours (ICD-10-PCS; principal; 2022-11-27)
PROC: 0BH17EZ Insertion of Endotracheal Airway into Trachea, Via Natural or Artificial Opening (ICD-10-PCS; 2022-11-27)
PROC: 5A1223Z Performance of Cardiac Pacing, Continuous (ICD-10-PCS; 2022-11-27)
PROC: 02HK3JZ Insertion of Pacemaker Lead into Right Ventricle, Percutaneous Approach (ICD-10-PCS; 2022-11-27)
PROC: 0DH67UZ Insertion of Feeding Device into Stomach, Via Natural or Artificial Opening (ICD-10-PCS; 2022-11-27)
PROC: 0T9B70Z Drainage of Bladder with Drainage Device, Via Natural or Artificial Opening (ICD-10-PCS; 2022-11-27)
PROC: 4A033R1 Measurement of Arterial Saturation, Peripheral, Percutaneous Approach (ICD-10-PCS; 2022-11-27)
DX: E11.10 Type 2 diabetes mellitus with ketoacidosis without coma (principal); I21.4 Non-ST elevation (NSTEMI) myocardial infarction; I46.8 Cardiac arrest due to other underlying condition; N17.9 Acute kidney failure, unspecified; I45.3 Trifascicular block; E87.1 Hypo-osmolality and hyponatremia; E87.5 Hyperkalemia; I12.9 Hypertensive chronic kidney disease with stage 1 through stage 4 chronic kidney disease, or unspecified chronic kidney disease; I25.10 Atherosclerotic heart disease of native coronary artery without angina pectoris; E11.22 Type 2 diabetes mellitus with diabetic chronic kidney disease; D63.1 Anemia in chronic kidney disease; E86.9 Volume depletion, unspecified; N18.30 Chronic kidney disease, stage 3 unspecified; R56.9 Unspecified convulsions; I45.10 Unspecified right bundle-branch block; R63.0 Anorexia; I25.2 Old myocardial infarction; Z95.5 Presence of coronary angioplasty implant and graft; Z95.1 Presence of aortocoronary bypass graft; Z79.4 Long term (current) use of insulin; Z79.899 Other long term (current) drug therapy; Z68.31 Body mass index [BMI] 31.0-31.9, adult; Z88.2 Allergy status to sulfonamides
CPT/HCPCS: 31500; 33210; 36415; 36600; 51702; 71045; 76770; 76937; 80047; 80048; 80051; 80053; 80069; 81001; 82010; 82330; 82435; 82550; 82803; 82947; 83036; 83605; 83735; 84132; 84145; 84146; 84295; 84484; 84550; 85007; 85014; 85018; 85025; 85027; 85520; 85610; 85730; 87040; 87086; 92950; 92953; 93005; 93010; 94002; 94003; 94644; 94664; 94762; 96365-59; 96375-59; 96376-59; 97110; 97116; 97161; 97530; 99291-25; A9270; C1751; C1894; C8929; G0103; J0171; J0461; J0612; J0696; J1644; J1650; J1815; J2704; J3010; J3475; J7030; J7050; Q9957

== ENCOUNTER → 2023-01-18 | Outpatient (CLI) | payer MEDICARE ==
[~2023-01-18] MED LIST changes: +ACET325 PO; +ATOR40TA PO; +BASAGLAR K100 UNIT/1 SC; +CAND16 PO; +Cipro500 MG PO; +DICL75ER PO; +GEMFIBROZIL600 MG PO; +HUMALOG KW100 UNIT/1 SC; +INSULIN LI100 UNIT/6 SQ; +METO100ER PO; +OMEP20ER PO; +SODBIC650 PO; +SPIR25 PO
[2023-01-18 20:17] LABS: Creatinine Urine 87.3 mg/dL (27.00-270.00); Microalbumin, Urine Quant. 13.9 mg/L (0.000-20.000); Protein, Urine Quantitative 16.9 mg/dL (0.0-11.9)
== END ==
LOC: LAB 13:00 → LAB SHORT 13:00
PROVIDERS: Internal Medicine Nephrology
DX: N18.30 Chronic kidney disease, stage 3 unspecified (principal); D63.1 Anemia in chronic kidney disease; E25.8 Other adrenogenital disorders; E55.9 Vitamin D deficiency, unspecified; R76.9 Abnormal immunological finding in serum, unspecified; R94.5 Abnormal results of liver function studies; R94.6 Abnormal results of thyroid function studies; D51.8 Other vitamin B12 deficiency anemias; D52.8 Other folate deficiency anemias; D50.9 Iron deficiency anemia, unspecified
CPT/HCPCS: 81050; 82043; 82570; 84156